=== PATIENT | female | born 1965 | race American Indian/Alaskan Native ===

== ENCOUNTER 2017-12-27 17:46 | Emergency (ER) | payer OTHER ==
[2017-12-27 18:10] VITALS: BMI 32.2
[2017-12-27 18:17] VITALS: TEMP 99; O2SAT 100
--- NOTE | 2017-12-27 18:34 | ED PDOC ---
Arrival/HPI - General Chief Complaint: Chest Pain Time Seen by Provider: 12/27/17 18:18 Historian: Patient - History of Present Illness Narrative History of Present Illness (Text): 12/27/17 18:31 52 year old female, whose past medical history includes hypertension, who presents to the emergency department complaining of worsened chest pain along the left ribs today. Patient states she has had chest pain for the past 6-7 months but the pain worsened today. Patient recently had a CTA of the chest and a stress test. Patient denies any fever, chills, shortness of breath, nausea, vomiting, diarrhea, back pain, neck pain, headache, dizziness, trauma/injury, or any other complaints. Time/Duration: Other (today) Symptom Onset: Sudden Symptom Course: Unchanged Activities at Onset: Light Context: Home Past Medical History - Provider Review Nursing Documentation Reviewed: Yes - Infectious Disease Hx of Infectious Diseases: None - Reproductive Menopause: Yes - Cardiac Hx Cardiac Disorders: Yes Hx Hypertension: Yes - Pulmonary Hx Respiratory Disorders: Yes Hx Asthma: Yes Hx Sleep Apnea: Yes - Neurological Hx Neurological Disorder: Yes Hx Migraine: Yes Hx Transient Ischemic Attacks (TIA): Yes (Aug 2017) - HEENT Hx HEENT Disorder: No - Renal Hx Renal Disorder: No - Endocrine/Metabolic Hx Endocrine Disorders: No - Hematological/Oncological Hx Blood Disorders: Yes Hx Anemia: Yes - Integumentary Hx Dermatological Disorder: No - Musculoskeletal/Rheumatological Hx Musculoskeletal Disorders: Yes Hx Arthritis: Yes Hx Fractures: Yes (R ankle, with hardware) - Gastrointestinal Hx Gastrointestinal Disorders: Yes Hx Diverticulitis: Yes Hx Gastritis: Yes - Genitourinary/Gynecological Hx Genitourinary Disorders: No - Psychiatric Hx Psychophysiologic Disorder: Yes Hx Anxiety: Yes Hx Substance Use: No - Surgical History Hx Cholecystectomy: Yes (?? or gallstones) - Anesthesia Hx Anesthesia: Yes Hx Anesthesia Reactions: No Hx Malignant Hyperthermia: No - Suicidal Assessment Feels Threatened In Home Enviroment: No Family/Social History - Physician Review Nursing Documentation Reviewed: Yes Family/Social History: Unknown Family HX Smoking Status: Former Smoker Hx Alcohol Use: No (socially) Hx Substance Use: No Allergies/Home Meds Allergies/Adverse Reactions: Allergies No Known Allergies Allergy (Verified 12/27/17 18:10) Home Medications: Home Meds Medication Instructions Recorded Confirmed NIFEdipine ER [Procardia XL] 90 mg PO DAILY 08/30/17 12/27/17 Pantoprazole Sodium [Protonix] 40 mg PO DAILY 09/22/17 12/27/17 clonazePAM [Klonopin] 0.5 mg PO DAILY PRN 09/22/17 12/27/17 Gabapentin [Neurontin] 100 mg PO BID 10/09/17 12/27/17 Ventolin HFA 90 mcg/actuation (8 g) 1 puff INH PRN PRN 10/09/17 12/27/17 Atenolol [Tenormin] 25 mg PO DAILY 12/27/17 12/27/17 Furosemide [Lasix] 40 mg PO DAILY 12/27/17 12/27/17 Potassium Chloride [K-Dur 20 mEq 20 tab PO DAILY 12/27/17 12/27/17 ER Tab] Valsartan [Diovan] 320 mg PO DAILY 12/27/17 12/27/17 Review of Systems - Physician Review All systems were reviewed & negative as marked: Yes - Review of Systems Constitutional: Normal Eyes: Normal ENT: Normal Respiratory: Normal. absent: SOB, Cough Cardiovascular: Chest Pain Gastrointestinal: Normal. absent: Abdominal Pain, Diarrhea, Nausea, Vomiting Genitourinary Female: Normal. absent: Dysuria, Frequency, Hematuria, Urine Output Changes Musculoskeletal: Normal. absent: Back Pain, Neck Pain Skin: Normal. absent: Rash Neurological: Normal. absent: Headache, Dizziness Endocrine: Normal Hemo/Lymphatic: Normal Psychiatric: Normal Physical Exam Vital Signs Reviewed: Yes Vital Signs Temp Pulse Resp BP Pulse Ox 12/27/17 20:10 20 117/75 100 12/27/17 19:50 60 18 117/75 100 12/27/17 18:16 99.0 F 79 16 112/79 100 Temperature: Afebrile Blood Pressure: Normal Pulse: Regular Respiratory Rate: Normal Appearance: Positive for: Well-Appearing, Non-Toxic, Comfortable Pain Distress: None Mental Status: Positive for: Alert and Oriented X 3 - Systems Exam Head: Present: Atraumatic, Normocephalic Pupils: Present: PERRL Extroacular Muscles: Present: EOMI Conjunctiva: Present: Normal Mouth: Present: Moist Mucous Membranes Neck: Present: Normal Range of Motion. No: Meningeal Signs, MIDLINE TENDERNESS , Paraspinal Tenderness Respiratory/Chest: Present: Clear to Auscultation, Good Air Exchange. No: Respiratory Distress, Accessory Muscle Use Cardiovascular: Present: Regular Rate and Rhythm, Normal S1, S2. No: Murmurs Abdomen: No: Tenderness, Distention, Peritoneal Signs Back: Present: Normal Inspection. No: CVA Tenderness, Midline Tenderness, Paraspinal Tenderness Upper Extremity: Present: Normal Inspection. No: Cyanosis, Edema Lower Extremity: Present: Normal Inspection. No: Edema Neurological: Present: GCS=15, CN II-XII Intact, Speech Normal Skin: Present: Warm, Dry, Normal Color. No: Rashes Psychiatric: Present: Alert, Oriented x 3, Normal Insight, Normal Concentration Medical Decision Making ED Course and Treatment: 12/27/17 18:35 Impression: 52 year old female presents to the emergency department complaining of worsened chest pain today. Plan: -- EKG -- Lyrica -- Reassess and disposition Progress Notes: 12/27/17 19:37 EKG reviewed, shows Sinus Bradycardia at 56 bpm. Incomplete right bundle branch block. - Medication Orders Current Medication Orders: Discontinued Medications Pregabalin (Lyrica) 100 mg PO ONCE ONE Stop: 12/27/17 18:46 Last Admin: 12/27/17 18:49 Dose: 100 mg Pregabalin (Lyrica) 100 mg PO STAT ONE Stop: 12/27/17 19:49 Last Admin: 12/27/17 20:10 Dose: 100 mg - Scribe Statement The provider has reviewed the documentation as recorded by the Jo Ann Rodriguez All medical record entries made by the Jo Ann were at my direction and personally dictated by me. I have reviewed the chart and agree that the record accurately reflects my personal performance of the history, physical exam, medical decision making, and the department course for this patient. I have also personally directed, reviewed, and agree with the discharge instructions and disposition. Disposition/Present on Arrival - Present on Arrival Any Indicators Present on Arrival: No History of DVT/PE: No History of Uncontrolled Diabetes: No Urinary Catheter: No History of Decub. Ulcer: No History Surgical Site Infection Following: None - Disposition Have Diagnosis and Disposition been Completed?: Yes Diagnosis: Intercostal neuritis Disposition: HOME/ ROUTINE Disposition Time: 19:32 Patient Plan: Discharge Condition: GOOD Additional Instructions: Feli - I hope the Lyrica works. Do not take it with Gabapentin. Brady- Dr. Mata Szymanski Prescriptions: Pregabalin [Lyrica] 100 mg PO TID #30 capsule Referrals: Jennifer Shin MD [Primary Care Provider] - Follow up with primary Forms: [facility] (Swedish), SCHOOL NOTE, WORK NOTE
[2017-12-27 19:50] VITALS: BP 117/75; PULSE 60
[2017-12-27 20:12] VITALS: RESP 20
== END 2017-12-27 20:10 | disposition home or self-care (01) ==
LOC: ED 17:46
DX: M79.2 Neuralgia and neuritis, unspecified (principal); I10 Essential (primary) hypertension; Z87.891 Personal history of nicotine dependence

== ENCOUNTER 2018-02-20 19:06 | Emergency (ER) | payer OTHER ==
[2018-02-20 19:07] VITALS: BMI 32.2
--- NOTE | 2018-02-20 20:41 | ED PDOC ---
Arrival/HPI - General Historian: Patient <Trisha aBrry - Last Filed: 02/20/18 21:10> <Jayce Rees - Last Filed: 02/20/18 21:23> - General Chief Complaint: Chest Pain Time Seen by Provider: 02/20/18 19:12 - History of Present Illness Narrative History of Present Illness (Text): 02/20/18 20:36 Patient is a 52 year old female with past medical history of hypertension, hyperlipidemia, TIA, shingles, gout who presents to the emergency dept for palpitations. Patient states that since wednesday she has been experiencing intermittent palpitations. Denies any inciting or exacerbating factors. She was seen at [facility] department on 02/16 where she was discharged with medrol dose pack for costocondritis. States that she did not take the medications. States that she went [place] [facility] [place] the same complaint. She took Klonopin which initially helped, however palpitations returned. She also reports having left sided chest pain that radiates to the back. Chest pain has been constant for the past month. She had a recent stress test 09/2017 that was normal. She has seen Dr Rascon in the past. Denies diaphoresis, headaches , dizziness, nausea/vomiting, shortness of breath, abdominal pain, urinary symptoms, changes in bowel habits. (JhonnyHazel arayam) Past Medical History - Provider Review Nursing Documentation Reviewed: Yes - Travel History Have you recently traveled outside [place] w/in the past 3 mons?: No - Infectious Disease Hx of Infectious Diseases: None - Cardiac Hx Hyperlipemia: Yes Hx Hypertension: Yes - Pulmonary Hx Asthma: Yes Hx Sleep Apnea: Yes - Neurological Hx Migraine: Yes Hx Transient Ischemic Attacks (TIA): Yes (Aug 2017) - HEENT Hx HEENT Disorder: No - Renal Hx Renal Disorder: No - Endocrine/Metabolic Hx Endocrine Disorders: No - Hematological/Oncological Hx Anemia: Yes - Integumentary Hx Dermatological Disorder: No - Musculoskeletal/Rheumatological Hx Arthritis: Yes Hx Fractures: Yes (R ankle, with hardware) - Gastrointestinal Hx Diverticulitis: Yes Hx Gastritis: Yes - Genitourinary/Gynecological Hx Genitourinary Disorders: No - Psychiatric Hx Anxiety: Yes Hx Depression: Yes Hx Substance Use: No - Surgical History Hx Cholecystectomy: Yes - Anesthesia Hx Anesthesia: Yes Hx Anesthesia Reactions: No Hx Malignant Hyperthermia: No - Suicidal Assessment Feels Threatened In Home Enviroment: No <Trisha Barry - Last Filed: 02/20/18 21:10> Family/Social History - Physician Review Nursing Documentation Reviewed: Yes Family/Social History: Diabetes, Hypertension Smoking Status: Former Smoker Hx Alcohol Use: No (socially) Hx Substance Use: No <Trisha Barry - Last Filed: 02/20/18 21:10> Allergies/Home Meds <Trisha Barry - Last Filed: 02/20/18 21:10> <Jayce Rees - Last Filed: 02/20/18 21:23> Allergies/Adverse Reactions: Allergies No Known Allergies Allergy (Verified 02/16/18 12:23) Home Medications: Home Meds Medication Instructions Recorded Confirmed NIFEdipine ER [Procardia XL] 90 mg PO DAILY 08/30/17 02/20/18 Pantoprazole Sodium [Protonix] 40 mg PO DAILY 09/22/17 02/20/18 clonazePAM [Klonopin] 0.5 mg PO DAILY PRN 09/22/17 02/20/18 Potassium Chloride [K-Dur 20 mEq 20 tab PO DAILY 12/27/17 02/20/18 ER Tab] Valsartan [Diovan] 320 mg PO DAILY 12/27/17 02/20/18 Valacyclovir HCl [Valacyclovir HCl] 500 mg PO DAILY 02/16/18 02/20/18 Pseudoephedrine [Pseudoephedrine 30 mg PO Q6 PRN 02/20/18 02/20/18 HCl] Ranitidine HCl [Zantac 300] 300 mg PO HS 02/20/18 02/20/18 Review of Systems - Review of Systems Constitutional: absent: Fatigue, Fevers Eyes: absent: Vision Changes, Photophobia ENT: absent: Hearing Changes Respiratory: absent: SOB, Cough, Wheezing Cardiovascular: Chest Pain, Palpitations. absent: Calf Pain Gastrointestinal: absent: Abdominal Pain, Diarrhea, Nausea, Vomiting Genitourinary Female: absent: Dysuria, Hematuria Neurological: absent: Headache, Dizziness Endocrine: absent: Diaphoresis <Trisha Barry - Last Filed: 02/20/18 21:10> Physical Exam Vital Signs Reviewed: Yes Temperature: Afebrile Blood Pressure: Normal Pulse: Regular Respiratory Rate: Normal Appearance: Positive for: Well-Appearing, Comfortable Pain Distress: None Mental Status: Positive for: Alert and Oriented X 3 - Systems Exam Head: Present: Atraumatic, Normocephalic Pupils: Present: PERRL Extroacular Muscles: Present: EOMI Mouth: Present: Moist Mucous Membranes Respiratory/Chest: Present: Clear to Auscultation, Good Air Exchange. No: Respiratory Distress Cardiovascular: Present: Regular Rate and Rhythm, Normal S1, S2, Other (Left chest wall under breast non-tender to palpation, no lesions/rashes). No: Murmurs, Irregular Rhythm, Tachycardic, Bradycardic Abdomen: Present: Normal Bowel Sounds. No: Tenderness Back: No: CVA Tenderness Upper Extremity: Present: Normal Inspection Lower Extremity: Present: Normal Inspection, NORMAL PULSES. No: CALF TENDERNESS Neurological: Present: Speech Normal Skin: Present: Warm, Dry, Normal Color <Trisha Barry - Last Filed: 02/20/18 21:10> Medical Decision Making <Trisha Barry - Last Filed: 02/20/18 21:10> - EKG Interpretation Interpreted by ED Physician: Yes <Jayce Rees - Last Filed: 02/20/18 21:23> ED Course and Treatment: 02/20/18 21:16 patient seen for palpitation and anxiety. all bloodwork reviewed from OSH which was negative including cbc, tsh, trop, dimer. patient admits torunning out of clonazepam but states she can see her regular doctor for a refill. patient was offered anxiolyic in the ED but patient reports that she does not need anything at this time. paatient's secondary complaint of left lower chest wall pain is most consistent with the patient's recent diagnosis of shingles and posteherpetic neuralgia. patient remained stable throughout ED course, gambling monitor remained at sinus rhythm at 65 bpn on several readings. 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 patient states she is able to make an appt with her [id number] dr. rascon. (Jayce Rees) - EKG Interpretation EKG Interpretation (Text): 02/20/18 21:19 1916: sinus rhythm at 68 bpm, nml qrs, nml axis, no acute sttw abn 2104: sinus rhythm at 62 bpm, nml qrs, nml axis, no acute sttw abn (Jayce Rees) Disposition/Present on Arrival - Present on Arrival Any Indicators Present on Arrival: No History of DVT/PE: No History of Uncontrolled Diabetes: No Urinary Catheter: No History of Decub. Ulcer: No History Surgical Site Infection Following: None <Trisha Barry - Last Filed: 02/20/18 21:10> - Present on Arrival Any Indicators Present on Arrival: No - Disposition Have Diagnosis and Disposition been Completed?: Yes Disposition Time: 21:21 Patient Plan: Discharge <Jayce Rees - Last Filed: 02/20/18 21:23> - Disposition Diagnosis: Palpitations, Postherpetic neuralgia Disposition: HOME/ ROUTINE Condition: STABLE Discharge Instructions (ExitCare): Palpitations, Shingles, Generalized Anxiety Disorder Print Language: PASHTO Additional Instructions: You must follow up with your residential recycle driver as soon as possible for the palpitations. Forms: [facility] (Citizen [place])
[2018-02-20 21:48] VITALS: BP 128/77; RESP 18; O2SAT 100
[2018-02-20 21:49] VITALS: TEMP 97.8
[2018-02-20 22:35] VITALS: PULSE 88
--- NOTE | 2018-02-21 09:21 | CARD ---
APPROVED REPORT Date of service: 02/20/2018 EKG Measurement Heart [id number] <Conclusion> Sinus rhythm with 1st degree AV block Incomplete right bundle branch block Borderline ECG
--- NOTE | 2018-02-21 12:39 | CARD ---
APPROVED REPORT Date of service: 02/20/2018 EKG Measurement Heart [id number] ID [id number] <Conclusion> Sinus rhythm with 1st degree AV block Incomplete right bundle branch block Borderline ECG
== END 2018-02-20 21:46 | disposition home or self-care (01) ==
LOC: ED 19:06
DX: R00.2 Palpitations (principal); B02.29 Other postherpetic nervous system involvement; E78.5 Hyperlipidemia, unspecified; I10 Essential (primary) hypertension

== ENCOUNTER 2018-03-09 10:43 | Emergency (ER) | payer OTHER ==
[2018-03-09 10:53] VITALS: BMI 32.2
[2018-03-09 11:16] VITALS: RESP 18; TEMP 98.1
--- NOTE | 2018-03-09 11:44 | ED PDOC ---
Arrival/HPI - General Historian: Patient, Family - History of Present Illness Time/Duration: > month Symptom Onset: Gradual Symptom Course: Worsening Quality: Stabbing, Burning Severity Level: 8 Activities at Onset: Rest <Kelechi Hensley - Last Filed: 03/09/18 11:32> <EstelaolegarioCristy A - Last Filed: 03/09/18 12:46> - General Chief Complaint: Back Pain Time Seen by Provider: 03/09/18 10:45 - History of Present Illness Narrative History of Present Illness (Text): 03/09/18 11:32 52 year-old female with PMH of shingles (with probable post-herpetic neuralgia diagnosed at her last ED visit), HTN, Hiatal Hernia, and asthma is presenting to the ED today complaining of chest discomfort that radiates under her left breast and back pain. Patient describes the pain under her breast as a sharp tenderness. She had a single episode of this pain yesterday, as she had a dry cough for the past few days. Patient describes the back pain as a chronic ache. Yesterday, the pain in her back worsened, most significantly in the area of her paraspinal muscles. Since yesterday, patient states that the pain under her left breast and back has also been getting worse, but the chest pain is completely gone. She took tylenol yesterday but got no relief of her symptoms. Patient reports that she has had the pain under her left breast before and it is related to her past diagnosis of shingles. Patient is currently taking Gabapentin for this pain. She has tried lyrica in the past but she states that it made her short of breath. Patient denied fevers, chills, nausea, vomiting, shortness of breath, light-headedness, and blurry vision. (Kelechi Hensley) Past Medical History - Provider Review Nursing Documentation Reviewed: Yes - Travel History Have you recently traveled outside [place] w/in the past 3 mons?: No - Infectious Disease Hx of Infectious Diseases: None - Cardiac Hx Hypertension: Yes - Pulmonary Hx Asthma: Yes Hx Sleep Apnea: Yes - Neurological Hx Migraine: Yes Hx Transient Ischemic Attacks (TIA): Yes (Aug 2017) - HEENT Hx HEENT Disorder: No - Renal Hx Renal Disorder: No - Endocrine/Metabolic Hx Endocrine Disorders: No - Hematological/Oncological Hx Anemia: Yes - Integumentary Hx Dermatological Disorder: No - Musculoskeletal/Rheumatological Hx Arthritis: Yes Hx Back Pain: Yes Hx Fractures: Yes (R ankle, with hardware) Hx Herniated Disk: Yes - Gastrointestinal Hx Diverticulitis: Yes Hx Gastritis: Yes - Genitourinary/Gynecological Hx Genitourinary Disorders: No - Psychiatric Hx Anxiety: Yes Hx Depression: Yes Hx Substance Use: No - Surgical History Hx Cholecystectomy: Yes - Anesthesia Hx Anesthesia: Yes Hx Anesthesia Reactions: No Hx Malignant Hyperthermia: No - Suicidal Assessment Feels Threatened In Home Enviroment: No <Kelechi Hensley - Last Filed: 03/09/18 11:32> Family/Social History - Physician Review Nursing Documentation Reviewed: Yes Family/Social History: Diabetes (father), Hypertension (father and mother), Neoplasm/Cancer (nephew at age 29) Smoking Status: Former Smoker Hx Alcohol Use: No (socially) Hx Substance Use: No <Kelechi Hensley - Last Filed: 03/09/18 11:32> Allergies/Home Meds <Kelechi Hensley - Last Filed: 03/09/18 11:32> <Cristy Andrade - Last Filed: 03/09/18 12:46> Allergies/Adverse Reactions: Allergies No Known Allergies Allergy (Verified 02/16/18 12:23) Home Medications: Home Meds Medication Instructions Recorded Confirmed NIFEdipine ER [Procardia XL] 90 mg PO DAILY 08/30/17 03/09/18 Pantoprazole Sodium [Protonix] 40 mg PO DAILY 09/22/17 03/09/18 clonazePAM [Klonopin] 0.5 mg PO DAILY PRN 09/22/17 03/09/18 Potassium Chloride [K-Dur 20 mEq 20 tab PO DAILY 12/27/17 03/09/18 ER Tab] Valsartan [Diovan] 320 mg PO DAILY 12/27/17 03/09/18 Valacyclovir HCl [Valacyclovir HCl] 500 mg PO DAILY 02/16/18 03/09/18 Pseudoephedrine [Pseudoephedrine 30 mg PO Q6 PRN 02/20/18 03/09/18 HCl] Ranitidine HCl [Zantac 300] 300 mg PO HS 02/20/18 03/09/18 Review of Systems - Review of Systems Constitutional: absent: Fatigue, Fevers Eyes: absent: Vision Changes, Photophobia ENT: absent: Hearing Changes, Sore Throat Respiratory: Cough. absent: SOB, Sputum, Wheezing Cardiovascular: Chest Pain. absent: Edema, Calf Pain, BARAJAS Gastrointestinal: absent: Abdominal Pain, Nausea, Vomiting Genitourinary Female: absent: Dysuria, Frequency Musculoskeletal: Back Pain. absent: Arthralgias, Neck Pain Skin: absent: Rash, Pruritis Neurological: absent: Headache, Dizziness Endocrine: absent: Diaphoresis Hemo/Lymphatic: absent: Adenopathy Psychiatric: absent: Anxiety, Depression <Kelechi Hensley Filed: 03/09/18 11:32> Physical Exam Vital Signs Reviewed: Yes Temperature: Afebrile Blood Pressure: Normal Pulse: Regular Respiratory Rate: Normal Appearance: Positive for: Non-Toxic, Uncomfortable Pain Distress: Mild Mental Status: Positive for: Alert and Oriented X 3 - Systems Exam Head: Present: Atraumatic, Normocephalic Pupils: Present: PERRL Extroacular Muscles: Present: EOMI Ears: Present: Normal Mouth: Present: Moist Mucous Membranes Pharnyx: Present: Normal. No: ERYTHEMA, EXUDATE Nose (External): Present: Atraumatic Neck: Present: Normal Range of Motion. No: JVD Respiratory/Chest: Present: Clear to Auscultation. No: Wheezes, Rales, Rhonchi Cardiovascular: Present: Regular Rate and Rhythm, Normal S1, S2. No: Murmurs, Rub, Gallop Abdomen: No: Tenderness, Rebound, Guarding Back: Present: Normal Inspection, Paraspinal Tenderness (reproducible with palpation of paraspinal area). No: CVA Tenderness, Midline Tenderness Upper Extremity: Present: Normal Inspection, Tenderness (chest wall tenderness reproducible with palpation, greatest under left breast). No: Cyanosis, Edema Lower Extremity: Present: Normal Inspection. No: Edema Neurological: Present: Speech Normal Skin: Present: Warm, Dry Lymphatic: No: Cervical Adenopathy Psychiatric: Present: Alert, Oriented x 3 <Kelechi Hensley Filed: 03/09/18 11:32> Vital Signs Temp Pulse Resp BP Pulse Ox 03/09/18 12:36 98.1 F 69 18 123/80 100 03/09/18 11:15 98.1 F 79 18 124/87 99 Medical Decision Making <Kelechi Hensley - Last Filed: 03/09/18 11:32> - Lab Interpretations I have reviewed the lab results: Yes - RAD Interpretation Nail Setter: ED Physician - EKG Interpretation Interpreted by ED Physician: Yes Type: 12 lead EKG <Cristy Andrade - Last Filed: 03/09/18 12:46> ED Course and Treatment: 03/09/18 11:47 -EKG without acute findings -Pain under left breast and paraspinal areas reproducible to palpation -Low suspicion for acute cardiac or pulmonary etiologies at this time -Will perform CXR and give toradol 15 mg IM for pain (Kelechi Hensley) 03/09/18 11:50 Patient seen by medical student and resident and then evaluated by me. Patient reports chronic history of L chest, specifically under L breast, pain since diagnosis of shingles. She reports that this is a chronic pain being treated with gabapentin. She reports that over the last 2 days she has uri complaints with a non-productive cough and yesterday and this morning that 2 isolated episodes of sharp chest pain associated with her cough which prompted her ED visit. Denies current chest pain. Denies shortness of breath. Also complaining of generalized back pain associated with her uri symptoms that she reports worsened after coughing. Denies fever, weakness, numbness, tingling, bladder or bowel incontinence, dysuria, back trauma. Physical exam shows tenderness to L chest wall under L breast and paraspinal lumbar muscle tenderness consistent with muscle spasm but no midline tenderness. Neurologically intact. No urinary complaints. Lungs cta b/l. EKG is unchanged and shows NSR at 67bpm with LAD. Presentation seems more consistent with uri. Stress test negative in 09/2017. Cxray negative for pneumonia and ptx. Patient feels better after toradol. Will dc to follow-up with PMD and neurology. (Cristy Andrade) - RAD Interpretation Radiology Orders: 03/09/18 11:44 CHEST PORTABLE [RAD] Stat - Medication Orders Current Medication Orders: Discontinued Medications Ketorolac Tromethamine (Toradol) 15 mg IM STAT STA Stop: 03/09/18 11:32 Last Admin: 03/09/18 11:46 Dose: 15 mg MAR Pain Assessment Document 03/09/18 11:46 [facility] (Rec: 03/09/18 11:46 [facility] [id number]) Pain Reassessment Is this a pain reassessment? No Sleep Is patient sleeping during reassessment? No Presence of Pain Presence of Pain Yes Pain Scale Used Pain Scale Used Numeric Location Upper or Lower Lower Pain Location Body Site Back IM Administration Charges Document 03/09/18 11:46 [facility] [place] (Rec: 03/09/18 11:46 [id number] Charges for Administration # of IM Administrations 1 Disposition/Present on Arrival - Present on Arrival History of DVT/PE: No History of Uncontrolled Diabetes: No Urinary Catheter: No History of Decub. Ulcer: No History Surgical Site Infection Following: None <Kelechi Hensley - Last Filed: 03/09/18 11:32> - Present on Arrival Any Indicators Present on Arrival: No - Disposition Have Diagnosis and Disposition been Completed?: Yes Disposition Time: 12:26 Patient Plan: Discharge <Cristy Andrade - Last Filed: 03/09/18 12:46> - Disposition Diagnosis: Neuropathic pain, Viral URI Disposition: HOME/ ROUTINE Patient Problems: Current Active Problems Problem Status Onset Viral URI Acute Neuropathic pain Acute Condition: GOOD Discharge Instructions (ExitCare): Viral Upper Respiratory Infection, Adult (DC ), Neuropathic Pain Additional Instructions: Follow-up with PMD within 2 days. Return to ED if condition worsens. Follow- up with neurologist within 1 week. Take medication as prescribed for neuropathic pain. Prescriptions: Naproxen 375 mg PO Q6 PRN #15 tablet PRN Reason: Pain, Mild (1-3) Referrals: Jennifer Shin MD [Primary Care Provider] - Follow up with primary Forms: [employer] ([place])
--- NOTE | 2018-03-09 12:27 | RAD ---
Date of service: 03/09/2018 HISTORY: cough COMPARISON: 08/07/2017 FINDINGS: LUNGS: No active pulmonary disease. PLEURA: No significant pleural effusion identified, no pneumothorax apparent. CARDIOVASCULAR: Normal. OSSEOUS STRUCTURES: No significant abnormalities. VISUALIZED UPPER ABDOMEN: Normal. OTHER FINDINGS: None. IMPRESSION: No active disease.
[2018-03-09 12:38] VITALS: BP 123/80; PULSE 69; O2SAT 100
--- NOTE | 2018-03-09 15:35 | CARD ---
APPROVED REPORT Date of service: 03/09/2018 EKG Measurement Heart [id number] <Conclusion> Normal sinus rhythm Left axis deviation Abnormal ECG
== END 2018-03-09 12:40 | disposition home or self-care (01) ==
LOC: ED 10:43
DX: R07.89 Other chest pain (principal); J06.9 Acute upper respiratory infection, unspecified; M79.2 Neuralgia and neuritis, unspecified; I10 Essential (primary) hypertension; Z87.891 Personal history of nicotine dependence
CPT/HCPCS: 71045; 93005; 96372; 99283; J1885